=== PATIENT | male | born 1975 | race Asian ===

== ENCOUNTER 2021-12-25 17:20 | Emergency (ER) | payer OTHER ==
[~2021-12-25] VITALS: Ht 180.3 cm; Wt 131.5 kg
[2021-12-25 18:44] LABS: PLATELET COUNT 197 K/uL (142-355)
[2021-12-25 18:53] LABS: POTASSIUM 3.8 mmol/L (3.6-5.2)
[2021-12-25 21:45] VITALS: BP 129/73; TEMP 98
== END 2021-12-25 21:45 | disposition home or self-care (01) ==
LOC: ED 17:20
PROVIDERS: Emergency Medicine
DX: I16.1 Hypertensive emergency (principal); Z91.14 Patient's other noncompliance with medication regimen
CPT/HCPCS: 36415; 80053; 81000; 84484; 85027; 85610; 99284